=== PATIENT | female | born 1940 | race Caucasian/White ===

== ENCOUNTER → 2017-03-01 | Outpatient (CLI) | payer MEDICARE ==
[~2017-03-01] MED LIST: ADVAIR 250/5028 PUFF INH; ADVAIR DISK28 PUFFS IN; BENTYL GENERIC10 MG PO; CALCIUM CARBON600 MG PO; CALTRATE 600+D1 TAB PO; DARVOCET-N 1001 EACH PO; LEVAQUIN500 MG PO; MIRALAX17 GM/PACK PO; PROAIR HFA0.09 MG/AC INH; REGLAN 5MG TABLE5 MG PO; ROBAXIN500 MG PO; TESSALON PERLE100 MG PO; VANICREAM1 CRE TP; ZOFRAN ODT4 MG PO
--- NOTE | 2017-03-04 10:08 | RADIOLOGY REPORT PS360 ---
DIG MAMM-SCREEN MARVIN W/CAD CAD Screening ORDERING PHYSICIAN : Tarah Echavarria MD PATIENT AGE: 76 years GENDER: Female COMPARISON: Previous mammograms: :. January 2013, February 2014, 2014, 2015 INDICATION: Routine screening No hormones. No new complaints. Noncontributory family history TECHNIQUE: Standard CC and MLO images were obtained. R2 CAD reviewed. FINDINGS: . CAD highlights no areas of concern. Either breast.Relatively low-density breast With Minimal residual fibroglandular elements bilateral. . No new areas of concern. No dominant mass. No suspicious calcifications. RIGHT BREAST: No new areas of concern. Minimal asymmetric fibroglandular density towards upper-outer quadrant right breast is stable LEFT BREAST: no change IMPRESSION: Stable bilateral mammogram with . no new areas concern. Bilateral follow-up in one year recommended. BI-RADS CATEGORY: 1_Negative RECOMMENDED FOLLOWUP: 12M 12 MONTH FOLLOW-UP (A letter has been sent to the patient regarding results of the study.)
== END ==
LOC: RAD 08:47
DX: Z12.31 Encounter for screening mammogram for malignant neoplasm of breast (principal)
CPT/HCPCS: G0202